=== PATIENT | female | born 1945 | race Two or more races ===

== ENCOUNTER 2018-06-25 14:34 | Emergency (ER) | payer SELFPAY ==
--- NOTE | 2018-06-25 14:32 | EDPHY ---
H & P Time Seen by Provider: 06/25/18 15:14 Constitutional: Initial Vital Signs Temperature (C) 36.9 C 06/25/18 14:41 Heart Rate 84 06/25/18 14:41 Respiratory Rate 16 06/25/18 14:41 Blood Pressure 147/81 H 06/25/18 14:41 O2 Sat (%) 94 06/25/18 14:41 O2 Delivery Mode Room Air Allergies/Adverse Reactions: No Known Allergies Allergy (Verified 06/25/18 14:43) Home Medications: Medication Instructions Recorded Amantadine HCl [Symmetrel] 100 mg PO BID 03/09/16 Aspirin [Aspirin 81mg (*)] 162 mg PO HS 03/09/16 Bellacid 1 tab PO HS 03/09/16 Biperiden 2mg Tab 1 mg PO BID 03/09/16 Bisoprolol Fumarate [Zebeta (*)] 5 mg PO HS 03/09/16 Bromocriptine Mesylate 2.5 mg PO HS 03/09/16 Desloratadine 5 mg PO HS 03/09/16 Diamicron 30 mg PO DAILY 03/09/16 Esomeprazole Magnesium [Nexium] 20 mg PO DAILY 03/09/16 Flavoxate 200mg 200 mg PO BID 03/09/16 Losartan/Hydrochlorothiazide 1 each PO DAILY 03/09/16 [Hyzaar 100-12.5 Tablet] Oxybutynin Chloride [Ditropan] 5 mg PO BID 03/09/16 Pramipexole Di-HCl [Mirapex 1 mg 1 mg PO BID 03/09/16 (*)] Rosuvastatin Calcium [Crestor] 10 mg PO DAILY@18 03/09/16 Sennosides/Docusate Sodium 2 each PO HS 03/09/16 [Senokot-S] Theophylline ER/Sr [Vu-Dur 300 150 mg PO HS 03/09/16 MG (*)] Trifluoperazine HCl [Stelazine 1MG 1 mg PO HS 03/09/16 (*)] Trivastal 50 mg PO BID 03/09/16 Carbidopa/Levo Cr 25/100Mg 1 tab PO DAILY #30 tab.cr 03/10/16 [Sinemet CR 25/100 MG (*)] Carbidopa/Levodopa 25/250Mg 0.5 tab PO QID@11,15,18,21 #60 tab 03/10/16 [Sinemet 25/250 MG (*)] Meclizine HCl [Meclizine HCl 25 mg 25 mg PO BID PRN #30 tab 03/10/16 (RX,OTC)] Ondansetron Odt [Zofran Odt 4 mg 4 mg PO Q4HRS PRN #14 tab 03/10/16 (*)] Medical Decision Making - Diagnostics Imaging: Discussed imaging studies w/ on call Radiologist, I viewed and interpreted images myself - Diagnostics Imaging Results: Imaging Impressions Cervical Spine CT 06/25/18 14:35 Impression: 1. Subgaleal hematoma. No acute intracranial process or cervical spine fracture/ subluxation. 2. Thyroid goiter. Would consider ultrasound characterization if not already performed. 3. Retropharyngeal carotids. 4. Prominent cervical lymph nodes, not definitely abnormal but would recommend clinical follow-up to ensure resolution or stability. Findings and recommendations discussed with Star Thakkar MD at 1514 hour, . Head CT 06/25/18 14:35 Impression: 1. Subgaleal hematoma. No acute intracranial process or cervical spine fracture/ subluxation. 2. Thyroid goiter. Would consider ultrasound characterization if not already performed. 3. Retropharyngeal carotids. 4. Prominent cervical lymph nodes, not definitely abnormal but would recommend clinical follow-up to ensure resolution or stability. Findings and recommendations discussed with Star Thakkar MD at 1514 hour, . Procedures: Procedure: Laceration repair. Verbal consent was obtained from the patient. The 4 cm laceration on the scalp was anesthetized in the usual fashion. The wound was irrigated, draped and explored to its base with a gloved finger. There were no deep structures involved. No tendon injury was identified. The wound was repaired with #2 diego. The procedure was performed by myself. (Annabelle Khanna) ED Course/Re-evaluation: CHIEF COMPLAINT: Fall HISTORY OF PRESENT ILLNESS: A 73-year-old female who is airbag speaking only but is accompanied here by her daughter who translates fluently. This patient has longstanding Parkinson's disease which is progressive. She was at a Parkinson's balance class at the [facility] when she fell backwards and hit her head. It was a witnessed event. She did not lose consciousness, she remembers the event completely, she has a small abrasion and a little bit of bleeding in the back of her scalp. She has a minor amount of neck pain. She is not on any blood thinners. This was clearly a mechanical fall not a syncopal event. REVIEW OF SYSTEMS: A comprehensive 10 system review of systems is otherwise negative aside from elements mentioned in the history of present illness and medical decision making. PHYSICAL EXAM: HR, BP, O2 Sat, RR. Temp noted General Appearance: Alert, well hydrated, appropriate, and non-toxic appearing. Head: Contusion abrasion occiput with small amount of bleeding. Eyes: Pupils equal, round, reactive to light and accommodation, EOMI, no trauma , no injection. Ears: Clear bilaterally, no perforation, normal landmarks Nose: Atraumatic, no rhinorrhea, clear. Throat: There is no erythema or exudates, no lesions, normal tonsils, mucus membranes moist. Neck: Supple, 2+ carotid upstroke, nontender, no lymphadenopathy. Respiratory: No retractions, no distress, no wheezes, and no accessory muscle use. Lungs are clear to auscultation bilaterally. Cardiovascular: Regular rate and rhythm, no murmurs, rubs, or gallops. Bilateral carotid, radial, dorsalis pedis, and posterior tibial pulses intact. Good capillary refill all extremities. Gastrointestinal: Abdomen is soft, nontender, non-distended, no masses, no rebound, no guarding, no peritoneal signs. Musculoskeletal: Normal active ROM of all extremities, atraumatic. Neurological: Left-sided tremor. Otherwise, Alert, appropriate, and interactive. The patient has normal DTRs and non-focal cranial nerves, motor, sensory, and cerebellar exam. Skin: No rashes, good turgor, no nodules on palpation. Past medical history: Parkinson's disease Past surgical history: Noncontributory Family history: Noncontributory Social history: , lives here with her daughter, retired, does not abuse tobacco drugs or alcohol DIAGNOSTICS/PROCEDURES/CRITICAL CARE TIME: Study: CT of the head and neck without contrast Indication: Trauma Results: CT scan of the head neck was obtained. The results of the study are normal. The study was read by the radiologist, Dr. Freddy Liang. I viewed the images myself on the PACS system. DIFFERENTIAL DIAGNOSIS: The differential diagnosis for the patient's trauma included but was not limited to intracranial injury, long bone and pelvic bone fractures, spinal injury, intra-abdominal injury, and intra-thoracic injury. MEDICAL DECISION MAKING: This patient had a mechanical fall from her Parkinson' s disease. Her daughter endorses the fact that she falls frequently and just fell 2 weeks ago hitting her head again but did not want to be transported to the hospital. She was in a balance class at the . She did not lose consciousness, she remembers the event well, no nausea vomiting, no new neurologic deficits. CT scan without contrast of the head and neck are pending. 1514: I spoke with Dr. Liang, radiologist, regarding patient's normal CT imaging findings. PAUL Khanna will suture the patients laceration to her occiput. 1528: Reassessed patient and discussed imaging findings. Return precautions provided; patient is comfortable with this plan. (Star Thakkar) Departure - Departure Disposition: Home, Routine, Self-Care Clinical Impression: Fall Qualifiers: Encounter type: initial encounter Qualified Code(s): W19.XXXA - Unspecified fall, initial encounter Head injury Qualifiers: Encounter type: initial encounter Qualified Code(s): S09.90XA - Unspecified injury of head, initial encounter Laceration of head Qualifiers: Encounter type: initial encounter Location of open wound of head: scalp Foreign body presence: without foreign body Qualified Code(s): S01.01XA - Laceration without foreign body of scalp, initial encounter Condition: Good Instructions: Laceration (ED), Head Injury (ED) Additional Instructions: 1. Diego out in 5-7 days. 2. Return to the Emergency Department for fever, redness, discharge from wound, increasing pain or other worsening of condition. 3. Follow-up with your primary doctor within 72 hours. 4. Return to the Emergency Department for severe headache, vomiting, vision changes, confusion, fever or other concerns. Referrals: AMY SPAULDING,. [Primary Care Provider] - As per Instructions
[2018-06-25 14:44] VITALS: BP 147/81
== END 2018-06-25 15:25 | disposition home or self-care (01) ==
LOC: EDUNIT#
PROC: 0HQ0XZZ Repair Scalp Skin, External Approach (ICD-10-PCS; principal; 2018-06-25)
DX: S01.01XA Laceration without foreign body of scalp, initial encounter (principal); G20 Parkinson's disease; W19.XXXA Unspecified fall, initial encounter; Y92.89 Other specified places as the place of occurrence of the external cause; Y93.89 Activity, other specified